=== PATIENT | female | born 1935 | race Caucasian/White ===

== ENCOUNTER → 2016-08-07 | Outpatient (CLI) | payer OTHER | LOC: FIMAGING 11:45 | PROVIDERS: ATTEND Internal Medicine Critical Care Medicine | DX: J42 Unspecified chronic bronchitis (principal) ==

== ENCOUNTER 2017-03-15 07:54 | Inpatient (IN) | payer OTHER ==
[2017-03-15] MEDS ORDERED: ASPIRIN 81 MG CHEWABLE TAB PO ONE (08:11)
[2017-03-15] MEDS ORDERED: NS 500 ML IV ONE (08:11)
--- NOTE | 2017-03-15 08:15 | EDPHY ---
H & P Stated Complaint: Chest pain, Lt arm pain since 2100 last PM Time Seen by Provider: 03/15/17 08:05 HPI/ROS: CHIEF COMPLAINT: Left arm pain HISTORY OF PRESENT ILLNESS: Patient is an 81-year-old female with a history of 4 cardiac stents placed [address] Acuña. She states that last night around 9:00 p.m. she developed left arm pain from her shoulder to her hand. No shortness of breath. No chest pain. No diaphoresis. Mild nausea but no vomiting. No headache or neck pain. REVIEW OF SYSTEMS: Constitutional: denies: chills, fever, recent illness, recent injury EENTM: denies: blurred vision, double vision, nose congestion Respiratory: denies: cough, shortness of breath Cardiac: See HPI denies: chest pain, irregular heart rate, lightheadedness, palpitations Gastrointestinal/Abdominal: denies: abdominal pain, diarrhea, nausea, vomiting, blood streaked stools Genitourinary: denies: dysuria, frequency, hematuria, pain Musculoskeletal: denies: joint pain, muscle pain Skin: denies: lesions, rash, jaundice, bruising Neurological: denies: headache, numbness, paresthesia, tingling, dizziness, weakness Hematologic/Lymphatic: denies: blood clots, easy bleeding, easy bruising Immunologic/allergic: denies: HIV/AIDS, transplant EXAM: GENERAL: Well-appearing, well-nourished and in no acute distress. HEAD: Atraumatic, normocephalic. EYES: Pupils equal round and reactive to light, extraocular movements intact, sclera anicteric, conjunctiva are normal. ENT: TMs normal, nares patent, oropharynx clear without exudates. Moist mucous membranes. NECK: Normal range of motion, supple without lymphadenopathy or JVD. LUNGS: Breath sounds clear to auscultation bilaterally and equal. No wheezes rales or rhonchi. HEART: Regular rate and rhythm without murmurs, rubs or gallops. ABDOMEN: Soft, nontender, normoactive bowel sounds. No guarding, no rebound. No masses appreciated. BACK: No CVA tenderness, no spinal tenderness, step-offs or deformities EXTREMITIES: Normal range of motion, no pitting or edema. No clubbing or cyanosis. NEUROLOGICAL: Cranial nerves II through XII grossly intact. Normal speech, normal gait. 5/5 strength, normal movement in all extremities, normal sensation PSYCH: Normal mood, normal affect. SKIN: Warm, dry, normal turgor, no visible rashes or lesions. Source: Patient Exam Limitations: No limitations - Personal History Current Tetanus/Diphtheria Vaccine: Unsure Current Tetanus Diphtheria and Acellular Pertussis (TDAP): Unsure Tetanus Vaccine Date: unsure - Medical/Surgical History Hx Asthma: No Hx Chronic Respiratory Disease: No Hx Diabetes: No Hx Cardiac Disease: Yes Hx Renal Disease: No Hx Cirrhosis: No Hx Alcoholism: No Hx HIV/AIDS: No Hx Splenectomy or Spleen Trauma: No Other PMH: pneumonia, heart stents, hysterectomy - Family History Significant Family History: No pertinent family hx - Social History Smoking Status: Former smoker Alcohol Use: Sober Drug Use: None Constitutional: Initial Vital Signs Temperature (C) 37 C 03/15/17 07:55 Heart Rate 74 03/15/17 07:55 Respiratory Rate 16 03/15/17 07:55 Blood Pressure 130/72 H 03/15/17 07:55 O2 Sat (%) 94 03/15/17 07:55 O2 Delivery Mode Room Air Allergies/Adverse Reactions: Latex, Natural Rubber Allergy (Verified 07/13/15 14:38) purple dye Allergy (Uncoded 07/13/15 14:38) Home Medications: Medication Instructions Recorded Levothyroxine [Synthroid 50 mcg 50 mcg PO DAILY06 02/02/09 (*)] Albuterol [Proventil] 2 puffs IH Q4 PRN 07/13/15 Fluticasone Nasal [Flonase Nasal 1 sprays NASAL DAILY PRN 07/13/15 [place]] Aspirin [Aspirin 325 mg (*)] 325 mg PO DAILY PRN 03/15/17 Multivitamins [Multivitamin (*)] 1 each PO DAILY@18 03/15/17 Simvastatin [Zocor] 20 mg PO HS 03/15/17 Medical Decision Making - Diagnostics EKG Interpretation: An EKG obtained and was read and documented in trace view. Please see trace view for full reading and report. Sinus rhythm, no acute ischemic changes Imaging Results: Imaging Impressions Chest X-Ray 03/15/17 08:11 Impression: Negative portable chest. ED Course/Re-evaluation: 9:30 a.m. we discussed the patient's lab and imaging results which are reassuring. Her D-dimer is negative age adjusted. She has had significant improvement in her pain was still is having left hand and triceps region pain/ numbness. No weakness. I recommended admission for further workup. She and her agree and are concerned about the insurance status if she is observation. Primary is Dr. Boston. 9:33 a.m. I discussed the case with Dr. Garza who will accept to the medical service for Dr. Alvares. Differential Diagnosis: Partial list of the Differential diagnosis considered include but were not limited to; acute coronary disease, pleurisy, PE, muscle strain and although unlikely based on the history and physical exam, I also considered TIA, CVA, vascular disease. - Data Points Laboratory Results: Laboratory Results 03/15/17 08:18 03/15/17 08:18 03/15/17 03/15/17 03/15/17 08:18 08:18 08:18 WBC 8.65 10^3/uL 10^3/uL (3.80-9.50) RBC 4.54 10^6/uL 10^6/uL (4.18-5.33) Hgb 12.7 g/dL g/dL (12.6-16.3) Hct 38.0 % % (38.0-47.0) MCV 83.7 fL fL (81.5-99.8) MCH 28.0 pg pg (27.9-34.1) MCHC 33.4 g/dL g/dL (32.4-36.7) RDW 14.1 % % (11.5-15.2) Plt Count 276 10^3/uL 10^3/uL (150-400) MPV 9.8 fL fL (8.7-11.7) Neut % (Auto) 56.8 % % (39.3-74.2) Lymph % (Auto) 31.4 % % (15.0-45.0) Cross % (Auto) 8.7 % % (4.5-13.0) Eos % (Auto) 2.0 % % (0.6-7.6) Baso % (Auto) 0.9 % % (0.3-1.7) Nucleat RBC Rel Count 0.0 % % (0.0-0.2) Absolute Neuts (auto) 4.91 10^3/uL 10^3/uL (1.70-6.50) Absolute Lymphs (auto) 2.72 10^3/uL 10^3/uL (1.00-3.00) Absolute Monos (auto) 0.75 10^3/uL 10^3/uL (0.30-0.80) Absolute Eos (auto) 0.17 10^3/uL 10^3/uL (0.03-0.40) Absolute Basos (auto) 0.08 10^3/uL 10^3/uL (0.02-0.10) Absolute Nucleated RBC 0.00 10^3/uL 10^3/uL (0-0.01) Immature Gran % 0.2 % % (0.0-1.1) Immature Gran # 0.02 10^3/uL 10^3/uL (0.00-0.10) PT 14.2 SEC SEC (12.0-15.0) INR 1.11 (0.83-1.16) APTT 32.6 SEC SEC (23.0-38.0) D-Dimer 0.58 ug/mLFEU H ug/mLFEU (0.00-0.50) Sodium 147 mEq/L H mEq/L (134-144) Potassium 4.0 mEq/L mEq/L (3.5-5.2) Chloride 105 mEq/L mEq/L (97-110) Carbon Dioxide 29 mEq/l mEq/l (22-31) Anion Gap 13 mEq/L mEq/L (8-16) BUN 18 mg/dL mg/dL (7-23) Creatinine 1.0 mg/dL mg/dL (0.6-1.0) Estimated GFR 53 Glucose 92 mg/dL mg/dL (70-100) Calcium 9.7 mg/dL mg/dL (8.5-10.4) Troponin I < 0.012 ng/mL ng/mL (0.000-0.034) Medications Given: Discontinued Medications Aspirin (Aspirin) 324 mg PO EDNOW ONE Stop: 03/15/17 08:12 Last Admin: 03/15/17 09:04 Dose: 324 mg Sodium Chloride (Ns) 500 mls @ 0 mls/hr IV EDNOW ONE; Wide Open PRN Reason: Protocol Stop: 03/15/17 08:12 Last Admin: 03/15/17 09:03 Dose: 500 mls Morphine Sulfate (Morphine) 2 mg IVP EDNOW ONE Stop: 03/15/17 08:12 Last Admin: 03/15/17 09:05 Dose: 2 mg Departure - Departure Disposition: [facility] Inpatient Acute Clinical Impression: Chest pain Qualifiers: Chest pain type: unspecified Qualified Code(s): R07.9 - Chest pain, unspecified Condition: Fair
[2017-03-15 08:27] LABS: % IMMATURE GRANULYOCYTES 0.2 % (0.0-1.1); ABSOLUTE IMMATURE GRANULOCYTES 0.02 10^3/uL (0.00-0.10); ADD DIFF? NO; ADD MORPH? NO; ADD SCAN? NO; ATYPICAL LYMPHOCYTE FLAG 0 (0-99); FRAGMENT RBC FLAG 0 (0-99); HEMOGLOBIN 12.7 g/dL (12.6-16.3); LEFT SHIFT FLG 0 (0-99); LIPEMIA HEMOLYSIS FLAG 80 (0-99); MEAN CELL HEMOGLOBIN CONCENTR. 33.4 g/dL (32.4-36.7); MEAN CELL VOLUME 83.7 fL (81.5-99.8); MEAN PLATELET VOLUME 9.8 fL (8.7-11.7); PLATELET CLUMPS FLAG 0 (0-99); PLATELET COUNT 276 10^3/uL (150-400); RED BLOOD CELL COUNT 4.54 10^6/uL (4.18-5.33); RED CELL DISTRIBUTION WIDTH 14.1 % (11.5-15.2)
--- NOTE | 2017-03-15 08:28 | CPEKG ---
Heart Rate: 67 RR Interval: 896 P-R Interval: 160 QRSD Interval: 78 QT Interval: 444 QTC Interval: 469 P [place]: 75 QRS [place]: 21 T Wave [place]: 49 EKG Severity - BORDERLINE ECG - EKG Impression: SINUS RHYTHM EKG Impression: BORDERLINE R WAVE PROGRESSION, ANTERIOR LEADS Electronically Signed By: Víctor Powers 15-Mar-2017 08:29:03
[2017-03-15 08:37] LABS: INR 1.11 (0.83-1.16); PROTIME(PATIENT) 14.2 SEC (12.0-15.0)
[2017-03-15 08:38] LABS: ANION GAP 13 mEq/L (8-16); APTT 32.6 SEC (23.0-38.0); CALCIUM 9.7 mg/dL (8.5-10.4); CARBON DIOXIDE 29 mEq/l (22-31); CHLORIDE 105 mEq/L (97-110); GLOMERULAR FILTRATION RATE 53; GLUCOSE 92 mg/dL (70-100); SODIUM 147 mEq/L (134-144)
[2017-03-15 08:50] LABS: TROPONIN I < 0.012 ng/mL (0.000-0.034)
[2017-03-15] MEDS ORDERED: ACETAMINOPHEN 325 MG TAB PO PRN (10:43)
[2017-03-15] MEDS ORDERED: ONDANSETRON 4 MG/2 ML VIAL IVP PRN (10:43)
--- NOTE | 2017-03-15 10:49 | PDGENHP ---
History and Physical History and Physical: CC: Left arm pain HISTORY: This patient who is known to us here from prior admissions, gotten bed around 9 o'clock last evening and shortly thereafter experienced onset abruptly of a fairly severe diffuse left upper extremity pain. It went from her shoulder down to her hand and was circumferential along that length of the limb. She describes it as feeling like she had banged her arm against something though there was no injury. She denies any kind of burning tingling or numb sensation to suggest neuropathic pain. She took some aspirin and after a few hours finally fell asleep and woke up this morning with the pain still present but lesser in severity. She came into the emergency room with the Pain still ongoing this morning and was given some morphine which gave her relief from the pain. She denies pain in the chest back neck abdomen or any other pain in the recent past. There has been no shortness of breath with this episode and no nausea and no palpitations. She states she has never had a pain in her arm like this before. The patient does have a history of coronary disease with stents placed 9 years ago. She has had no cardiac problems since then. At that time she had very specifically a severe angina pain in the substernal area but does not recall having any arm pain with that episode. She continues on cardiac medications. She has not had recently any orthopnea, palpitations, angina-like symptoms, or ankle edema. Notably she does also have some chronic asthma and has a history of 20 pack years of smoking having quit a long time ago. In the fpc she uses intermittent albuterol. She tells me that over the last 2-3 months she has had worsening trouble with her chronic dyspnea along with some nocturnal coughing. She has been using her albuterol inhaler more often than she typically does during this time and says that it still does help her breathing way she expects it to. She is not on either inhaled long-acting bronchodilators or inhaled steroids as best I can tell. She has no fever or sputum production and has not had anything that feels like a cold or flu. ROS: A comprehensive 10 system review revealed no other significant findings PAST MEDICAL HISTORY: Coronary artery disease with 4 stents Osteoarthritis Pneumonia Reactive airway disease, question chronic bronchitis Hypothyroidism Hysterectomy FAMILY MEDICAL HISTORY: Coronary artery disease in multiple family members SOCIAL HISTORY: Quit smoking after 20 pack year history lives with her MEDICATIONS: The patients list has been reconciled by our clinical pharmacist in the EMR. I have reviewed the list and ordered appropriate medicines. PHYSICAL EXAMINATION: Vital Signs: Normal blood pressure pulse respirations and no fever Marriage And Family Counselor: Sinus rhythm in the ER Examination: General: alert, oriented, good mentation, relaxed Skin: warm, dry, good color, no rash HEENT: normal Neck: no mass or jvd Resps: relaxed Lungs: clear breath sounds Heart: regular, no murmur Abdomen: soft, nondistended, nontender, +BS, no mass Upper Extremities: Inspection and palpation of the left upper extremity with skin soft tissues skeletal and vascular exam reveals no abnormalities, otherwise right extremity normal Lower Extremities: no edema, warm No Bleeding or bruising Neurologic: normal speech/language, 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, no focal weakness IV site: looks normal LABORATORY DATA: D-dimer is elevated Troponin is undetectable Sodium a little bit elevated at 147 with normal chloride and bicarbonate Otherwise unremarkable Chem panel and CBC RADIOLOGY STUDIES: Chest x-ray on my personal review of images shows some mild diffuse interstitial abnormalities throughout the lower portions of the lungs, little changed from previous x-rays I reviewed from over the past 2 years 12 LEAD EKG: Sinus rhythm with normal QRS complex, nothing that appears as ischemia or injury ASSESSMENT: # left arm pain lasting approximately 12 hours spontaneous onset. The cause of this is uncertain. It does not sound like it is likely to be a cardiac pain in that it is in a completely different location than her previous angina and it lasted 12 hours with normal EKG and normal troponin. I cannot find anything else from history or examination however to explain this pain. It is reasonable to observe her here and overnight and do stress testing in the morning if all stable as she does have a history of coronary disease with stents from 9 years ago. # elevated D-dimer. Unsure why she had this test done as she really does not have any symptoms at all suggestive of PE or DVT. DVT of the arm would not have resolved away her pain has resolved. At this time my suspicion for thrombo embolic disease extremely low and I will not pursue it further unless something changes # uncontrolled reactive airway disease and with her smoking history suspicion for chronic obstructive disease as well. With her history as described above at this time is indicated to add some long-acting inhaled medications, and I will review with Dr. 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 Hi and get her started on some long-acting inhaled medications -continue current cardiac medications I have reviewed the patient's case in detail with Dr. Dwayne Hi and Víctor Powers I have reviewed the patient's past medical records as part of this assessment, including previous hospital admission records
[2017-03-15] MEDS ORDERED: ALBUTEROL IH PRN (10:52)
[2017-03-15] MEDS ORDERED: FLUTICASONE NASAL 120 SPRAYS/16 GM MDI EACHNARE PRN (10:52)
[2017-03-15] MEDS ORDERED: ASPIRIN 325 MG TAB PO PRN (10:52)
[2017-03-15] MEDS ORDERED: ALBUTEROL 200 PUFFS/18 GM MDI IH PRN (11:15)
[2017-03-15] MEDS: MULTIVITAMINS 1 EACH TAB PO SCH (17:34)
[2017-03-15] MEDS: ATORVASTATIN CALCIUM 10 MG TAB PO SCH (19:52)
[2017-03-15] MEDS ORDERED: NON-FORMULARY NEW DRUG (Simvastatin [Zocor] 20 MG) PO SCH (21:00)
[2017-03-15] MEDS: BUDESONIDE 0.5 MG/2 ML AMPUL.NEB IH SCH (22:27)
[2017-03-16 04:54] LABS: ANION GAP 13 mEq/L (8-16); CALCIUM 9.7 mg/dL (8.5-10.4); CARBON DIOXIDE 25 mEq/l (22-31); CHLORIDE 107 mEq/L (97-110); CREATININE 0.9 mg/dL (0.6-1.0); GLOMERULAR FILTRATION RATE 60; GLUCOSE 89 mg/dL (70-100); POTASSIUM 4.1 mEq/L (3.5-5.2); SODIUM 145 mEq/L (134-144)
[2017-03-16] MEDS: LEVOTHYROXINE 50 MCG TAB PO SCH (06:18)
[2017-03-16] MEDS: ENOXAPARIN 40 MG/0.4 ML SYR SC SCH (08:55)
[2017-03-16] MEDS: BUDESONIDE 0.5 MG/2 ML AMPUL.NEB IH SCH ×2 (09:18→21:47)
[2017-03-16] MEDS ORDERED: REGADENOSON 0.4 MG/5 ML SYR IVP ONE (09:30)
--- NOTE | 2017-03-16 11:09 | ASMTCMCOM ---
CM Note CM Note Notes: 03/16/2017 Case Management Note Met w/pt and Nolan [phone] Son Roderick can be reached at [phone]. CISNEROS signed. had questions regarding coverage, provided financial services information. Pt reports using a home care agency in the past but unable to recall name of agency. Case Management unable to find agency in past records. No case management d/c needs identified at this time d/t family support and activity levels prior to admission. There are no PT or OT evals ordered. Case Management d/c poc: Home independent with family support when medically stable with follow up as directed. Case Management available if needs change. Date Signed: 03/16/2017 11:08 AM Electronically Signed By:Lis Barrett RN
--- NOTE | 2017-03-16 12:17 | CPIP ---
[f rep st] INVASIVE CARDIAC PROCEDURE DATE OF PROCEDURE: 03/15/2017 PROCEDURE PERFORMED: Lexiscan stress test report. INDICATIONS: Chest pain. COMPLICATIONS: None. DESCRIPTION OF PROCEDURE: Informed consent was obtained. The patient was established to the monitor . Continuous telemetry, blood pressures every minute and continuous oxygen saturation monitoring was performed. The patient received 0.4 mg Lexiscan infusion per standard protocol followed by radio ph armaceutical. FINDINGS: Resting EKG: Normal sinus rhythm. Stress EKG: No change in rhythm and no ischemic ST changes. HEMODYNAMICS: Resting heart rate 78 beats per minute. Resting blood pressure 144/78. At peak pharm acological affect blood pressure was 112/70 with a heart rate of 96. Oxygen saturation remained abov e 90% throughout testing. SYMPTOMS: The patient experienced some shortness of breath and flushing that resolved with caffeine ingestion. CONCLUSIONS: Uneventful Lexiscan infusion. Await nuclear images. /[id number]/MODL
--- NOTE | 2017-03-16 16:08 | HOSPPROG ---
Hospitalist Progress Note Assessment/Plan: Perfusion scan with lexiscan with some perfusion abnormality, so will need to keep her here overnight. Will need to change to inpatient DIAGNOSES: -L arm pain, c/w angina -hx of CAD / stents -ongoing persistent moderate asthma symptoms, improved with addition of inhaled steroid here at this time PLANS: Will continue monitoring here overnight Resting myocardial perfusion scan tomorrow Continue inhaled steroid along with her bronchodilator Recommend follow-up with Dr. Hi in clinic in the near future to review her asthma care SUBJECTIVE: Her left arm pain is completely resolved No chest pain or shortness of breath She has improvement in her breathing symptoms since addition of the inhaled steroid yesterday OBJECTIVE Vitals reviewed: some mild HTN, otherwise stable Medicare Nurse, my review: sinus Exam: alert oriented skin warm dry color ok resps not labored lungs clear BSs heart regular abd soft nondistended nontender, bowel sounds present limbs warm, no edema iv site ok Perfusion Scan: There is some decreased uptake in the septum and apex on Lexiscan myocardial perfusion imaging today Objective: Vital Signs Temp Pulse Resp BP Pulse Ox 36.7 C 79 26 H 150/99 H 94 03/16/17 15:54 03/16/17 15:54 03/16/17 15:54 03/16/17 15:54 03/16/17 15:54 Laboratory Results 03/16/17 04:12 03/15/17 03/16/17 03/17/17 06:59 06:59 06:59 Intake Total 700 Balance 700 PT 14.2 SEC (12.0-15.0) 03/15/17 08:18 INR 1.11 (0.83-1.16) 03/15/17 08:18 ICD10 Worksheet Patient Problems: Problems Problem Status Onset Chest pain Acute Fever Acute Hypoxia Acute
--- NOTE | 2017-03-16 17:20 | PDMN ---
Medical Necessity Medical necessity: C/M review: est. > 2 MN LOS for eval and TX of acute left arm pain consistent with angina, 03/16/2017 perfusion scan with lexiscan with some perfusion abnormality requiring planned 03/17/2017 myocardial perfusion scan rest images, ongoing cardiac monitoring, comorbid mild hypertension, hx CAD / stents per 03/16/2017 Hospitalist progress note.
[2017-03-16] MEDS: MULTIVITAMINS 1 EACH TAB PO SCH (18:49)
[2017-03-16] MEDS: ATORVASTATIN CALCIUM 10 MG TAB PO SCH (19:45)
[2017-03-17] MEDS: LEVOTHYROXINE 50 MCG TAB PO SCH (07:20)
[2017-03-17 07:31] VITALS: RESP 18; TEMP 97.4
[2017-03-17] MEDS: BUDESONIDE 0.5 MG/2 ML AMPUL.NEB IH SCH (08:11)
--- NOTE | 2017-03-17 09:08 | HOSPPROG ---
Hospitalist Progress Note Assessment/Plan: #acute left arm pain: initial concern for anginal equivalent for CAD -Lexiscan negative Negative trop/EKG #CAD: stenting 9 years ago #Suspected COPD: add Qvar, FU with Dr. Hi DC today Subjective: no arm pain or SOB. Objective: Vital Signs Temp Pulse Resp BP Pulse Ox 36.3 C 70 18 130/67 H 94 03/17/17 07:30 03/17/17 07:30 03/17/17 07:30 03/17/17 07:30 03/17/17 08:13 03/16/17 03/17/17 03/18/17 05:59 05:59 05:59 Intake Total 750 Balance 750 PT 14.2 SEC (12.0-15.0) 03/15/17 08:18 INR 1.11 (0.83-1.16) 03/15/17 08:18 - Physical Exam Constitutional: no apparent distress Eyes: PERRL Ears, Nose, Mouth, Throat: moist mucous membranes Cardiovascular: regular rate and rhythym, No edema Respiratory: no respiratory distress Gastrointestinal: normoactive bowel sounds Genitourinary: no bladder fullness Skin: warm Musculoskeletal: full muscle strength Neurologic: AAOx3 Psychiatric: interacting appropriately Lymph, Heme, Immunologic: no cervical LAD ICD10 Worksheet Patient Problems: Problems Problem Status Onset Chest pain Acute Fever Acute Hypoxia Acute
[2017-03-17] MEDS: ENOXAPARIN 40 MG/0.4 ML SYR SC SCH (10:03)
[2017-03-17 11:23] VITALS: BP 118/64; PULSE 78; O2SAT 91
--- NOTE | 2017-03-18 13:11 | GDS ---
[f rep st] DISCHARGE SUMMARY DISCHARGE DIAGNOSES: 1. Left arm pain, initial concern for anginal equivalent. 2. History of coronary artery disease with 4 stents. 3. Osteoarthritis. 4. Pneumonia. 5. Reactive airway disease. 6. Hypothyroidism. REASON FOR ADMISSION: An 81-year-old female with history of coronary disease with 4 stents, osteoarthritis, reactive airways disease, presented after having severe left upper arm pain. It went from her shoulder to her hand, and felt as though she banged it against something. She denies any injury or trauma. She denies any burning, numbness. She took 3 aspirins and fell asleep, but awoke again with the pain still present, but less severe. She came in the ER with the pain and was given some relief with morphine. She denies overt chest pain, neck pain or back pain. No shortness of breath. No nausea, vomiting, diaphoresis. HOSPITAL COURSE BY PROBLEM: 1. Left arm pain: Concern for angina equivalent given history of coronary artery disease. Underwent Lexiscan that was negative for ischemia. She has resumed aspirin and statin. 2. Reactive airways disease: Likely has COPD. She follows with Dr. Hi. Will add Qvar, cont albuterol. 3. Hypothyroidism. Continue Synthroid. DISCHARGE DISPOSITION: Patient is stable for discharge. NEW MEDICATIONS: Qvar FOLLOWUP: 1. Her primary care physician. 2. Dr. Hi. She was given return precautions for chest pain, shortness of breath, nausea, vomiting. /[id number]/MODL MTDD
--- NOTE | 2017-03-19 15:48 | ASDISCHSUM ---
Discharge Information Plan Status:Home with No Needs Medically Cleared to Leave: Discharge Date:03/17/2017 04:45 PM CM D/C Disposition:Home, Routine, Self-Care ADT D/C Disposition:Home, Routine, Self-Care Projected Discharge Date:03/17/2017 04:45 PM Transportation at D/C:Family Discharge Delay Reason: Follow-Up Date:03/17/2017 04:45 PM Discharge Slot: Final Diagnosis: Placement Information Patient Contact Information Contact Name:CLAUDIA Relationship: Address:[address] [place]:[facility] Phone: [facility]/Zip Code:[place] [address] Email: Financial Information Financial Class: Primary Plan Desc:MEDICARE INPATIENT Primary Plan Number:[id number] Secondary Plan Desc:[facility] Secondary Plan Number:[id number] Assessment Information LACE LACE Acuity / Level of Care Answers: Was the patient admitted to hospital via the emergency department? Yes: Comorbidities - select Answers: Previous myocardial all that apply infarction Emergency dept visits in Answers: 1 last 6 months Score: 5 Date Signed: 03/15/2017 11:13 AM Electronically Signed By:Asiya Coleman RN [facility] Progress Note CM Note CM Note Notes: 03/16/2017 Case Management Note Met w/pt and Nolan [phone] Tito Vaughn can be reached at [phone]. BLAYNE signed. had questions regarding coverage, provided financial services information. Pt reports using a home care agency in the past but unable to recall name of agency. Case Management unable to find agency in past records. No case management d/c needs identified at this time d/t family support and activity levels prior to admission. There are no PT or OT evals ordered. Case Management d/c poc: Home independent with family support when medically stable with follow up as directed. Case Management available if needs change. Date Signed: 03/16/2017 11:08 AM Electronically Signed By:Lis Barrett RN Intervention Information Intervention Type:*CISNEROS-Signed Date of Service:03/16/2017 11:08 AM Patient Type:Observation Staff Member:VIMAL Barrett Hillary Hours:0.5 Discipline: Severity: Comment: Intervention Type:*Occurence 72 Date of Service:03/15/2017 09:10 AM Patient Type:Inpatient Staff Member:VIMAL Ludwig Courtney Hours: Discipline: Severity: Comment:
== END 2017-03-17 16:45 | disposition home or self-care (01) | DRG 311 ==
LOC: F2W 11:10 → OBSVTOIN 03-16 16:03
PROVIDERS: ADMIT Internal Medicine; ATTEND Internal Medicine
DX: I20.9 Angina pectoris, unspecified (principal); M19.90 Unspecified osteoarthritis, unspecified site; J45.909 Unspecified asthma, uncomplicated; E03.9 Hypothyroidism, unspecified; Z95.5 Presence of coronary angioplasty implant and graft; J44.9 Chronic obstructive pulmonary disease, unspecified; Z87.891 Personal history of nicotine dependence
CPT/HCPCS: 96374; A9500; G0378; J1650; J2785; J7626

== ENCOUNTER 2017-05-08 09:58 | Emergency (ER) | payer OTHER ==
[2017-05-08 10:07] VITALS: RESP 18; TEMP 97.5
--- NOTE | 2017-05-08 10:28 | CPEKG ---
Heart Rate: 85 RR Interval: 706 P-R Interval: 172 QRSD Interval: 78 QT Interval: 388 QTC Interval: 462 P [place]: 84 QRS [place]: 33 T Wave [place]: 48 EKG Severity - ABNORMAL ECG - EKG Impression: artifact present EKG Impression: SINUS RHYTHM Electronically Signed By: Natasha Crane 08-May-2017 15:22:35
--- NOTE | 2017-05-08 10:34 | EDPHY ---
H & P Time Seen by Provider: 05/08/17 10:23 HPI/ROS: CHIEF COMPLAINT: Fall, facial injury HISTORY OF PRESENT ILLNESS: 82-year-old female presents to the emergency department by private vehicle after she sustained a fall just prior to arrival. Her states that he dropped her off for an appointment with her proposal writer and he was going to park the car and the next thing he knew 0 she was on the ground. It is not clear where dinner she felt dizzy or had a syncopal episode. She does not remember feeling dizzy or having pain in her chest but she does not remember why she fell. She does not remember tripping or losing her balance. She feels a bit dizzy now. She has pain in her facial bones specifically her nose. Denies neck or back pain. Denies chest pain or difficulty breathing. No abdominal pain. No injury to her upper or lower extremities. REVIEW OF SYSTEMS: Constitutional: No fever, no chills. Eyes: No double or blurry vision. ENT: No sore throat. Respiratory: No cough, no shortness of breath. Cardiac: No chest pain. Gastrointestinal: No abdominal pain, vomiting or diarrhea. Genitourinary: No dysuria. Musculoskeletal: No neck or back pain. Skin: Facial abrasions. No rashes. Neurological: No headache. Past Medical/Surgical History: Pneumonia, cardiac stents, hysterectomy Social History: Smoking Status: Former smoker Physical Exam: General Appearance: Alert, no distress. Mentating normally and answering questions appropriately. Eyes: Pupils equal and round. Extraocular motions are all intact. ENT: Mouth: Mucous membranes moist. No dental injury or malocclusion. Respiratory: No wheezing, rhonchi, or rales, lungs are clear to auscultation. Cardiovascular: Regular rate and rhythm. Gastrointestinal: Abdomen is soft and nontender, no masses, no rebound or guarding, bowel sounds normal. Neurological: Alert and oriented x 3, cranial nerves II through XII grossly intact Skin: Superficial abrasions noted to the anterior aspect of her nose. Warm and dry, no rashes. Musculoskeletal: Nontender to palpate along the cervical, thoracic or lumbar spine. Neck is supple. Extremities: Full range of motion and no peripheral edema. Psychiatric: Patient is oriented X 3, there is no agitation. Constitutional: Initial Vital Signs Temperature (C) 36.4 C 05/08/17 10:03 Heart Rate 95 05/08/17 10:03 Respiratory Rate 18 05/08/17 10:03 Blood Pressure 162/92 H 05/08/17 10:03 O2 Sat (%) 95 05/08/17 10:03 O2 Delivery Mode Room Air Allergies/Adverse Reactions: Latex, Natural Rubber Allergy (Verified 05/08/17 09:59) purple dye Allergy (Uncoded 07/13/15 14:38) Home Medications: Medication Instructions Recorded Levothyroxine [Synthroid 50 mcg 50 mcg PO DAILY06 02/02/09 (*)] Albuterol [Proventil] 2 puffs IH Q4 PRN 07/13/15 Fluticasone Nasal [Flonase Nasal 1 sprays NASAL DAILY PRN 07/13/15 [place]] Aspirin [Aspirin 325 mg (*)] 325 mg PO DAILY PRN 03/15/17 Multivitamins [Multivitamin (*)] 1 each PO DAILY@18 03/15/17 Simvastatin [Zocor] 20 mg PO HS 03/15/17 Beclomethasone Qvar 80 [Qvar 80 1 puffs IH BID #1 mdi 03/17/17 (*)] Qvar 05/08/17 Medical Decision Making - Diagnostics Imaging Results: Imaging Impressions Cervical Spine CT 05/08/17 10:31 Impression: 1. No acute fracture or soft tissue swelling. 2. 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 3. If the patient has persistent pain or neurologic deficits, consider cervical spine MRI. Findings discussed with Emergency Department, Sabina Shahid, on 05/08/2017 at 11: [address] 05/08/17 10:31 Impression: Negative. No acute fracture or intracranial hemorrhage. Findings discussed with Emergency Department, Sabina Shahid, on 05/08/2017 at 11: 23 a.m. Imaging: Discussed imaging studies w/ drapery seamstress Radiologist ED Course/Re-evaluation: 82-year-old female presents after a fall. CT imaging of the head and cervical spine were negative. Laboratory studies were unremarkable. EKG was within normal limits. The patient does not have a pacemaker. Patient was able to ambulate throughout the department and had no complaints. The case was discussed with Dr. Natasha Crane, secondary supervising physician, who did not directly evaluate the patient but agrees with treatment and plan. It is not clear whether this patient has syncopal episode where she had a mechanical fall. She has been feeling dizzy and that is why she was going to see her proposal writer about her chronic nausea. I offered admission to the hospital, however the patient declined. She will have close follow-up with her primary care provider. She was encouraged to return to the emergency department if any other concerns. Differential Diagnosis: Head injury including but not limited to concussion, skull fracture, intraparenchymal contusion, subarachnoid, subdural and epidural hematoma. Syncope including but not limited to vasovagal syncope, arrhythmia, dehydration , and blood loss. - Data Points Laboratory Results: Laboratory Results 05/08/17 10:30 05/08/17 10:30 05/08/17 05/08/17 10:30 10:30 WBC 9.25 10^3/uL 10^3/uL (3.80-9.50) RBC 4.80 10^6/uL 10^6/uL (4.18-5.33) Hgb 13.2 g/dL g/dL (12.6-16.3) Hct 40.6 % % (38.0-47.0) MCV 84.6 fL fL (81.5-99.8) MCH 27.5 pg L pg (27.9-34.1) MCHC 32.5 g/dL g/dL (32.4-36.7) RDW 13.7 % % (11.5-15.2) Plt Count 339 10^3/uL 10^3/uL (150-400) MPV 9.7 fL fL (8.7-11.7) Neut % (Auto) 54.4 % % (39.3-74.2) Lymph % (Auto) 34.8 % % (15.0-45.0) [place] % (Auto) 7.6 % % (4.5-13.0) Eos % (Auto) 1.7 % % (0.6-7.6) Baso % (Auto) 1.2 % % (0.3-1.7) Nucleat RBC Rel Count 0.0 % % (0.0-0.2) Absolute Neuts (auto) 5.03 10^3/uL 10^3/uL (1.70-6.50) Absolute Lymphs (auto) 3.22 10^3/uL H 10^3/uL (1.00-3.00) Absolute Monos (auto) 0.70 10^3/uL 10^3/uL (0.30-0.80) Absolute Eos (auto) 0.16 10^3/uL 10^3/uL (0.03-0.40) Absolute Basos (auto) 0.11 10^3/uL H 10^3/uL (0.02-0.10) Absolute Nucleated RBC 0.00 10^3/uL 10^3/uL (0-0.01) Immature Gran % 0.3 % % (0.0-1.1) Immature Gran # 0.03 10^3/uL 10^3/uL (0.00-0.10) Sodium 149 mEq/L H mEq/L (134-144) Potassium 4.0 mEq/L mEq/L (3.5-5.2) Chloride 105 mEq/L mEq/L (97-110) Carbon Dioxide 26 mEq/l mEq/l (22-31) Anion Gap 18 mEq/L H mEq/L (8-16) BUN 21 mg/dL mg/dL (7-23) Creatinine 0.9 mg/dL mg/dL (0.6-1.0) Estimated GFR 60 Glucose 83 mg/dL mg/dL (70-100) Calcium 10.2 mg/dL mg/dL (8.5-10.4) Troponin I < 0.012 ng/mL ng/mL (0.000-0.034) Medications Given: Discontinued Medications Sodium Chloride (Ns) 1,000 mls @ 0 mls/hr IV ONCE ONE PRN Reason: Wide Open Stop: 05/08/17 10:37 Last Admin: 05/08/17 10:41 Dose: 1,000 mls Departure - Departure Disposition: Home, Routine, Self-Care Clinical Impression: Facial contusion Qualifiers: Encounter type: initial encounter Qualified Code(s): S00.83XA - Contusion of other part of head, initial encounter Facial abrasion Qualifiers: Encounter type: initial encounter Qualified Code(s): S00.81XA - Abrasion of other part of head, initial encounter Fall Qualifiers: Encounter type: initial encounter Qualified Code(s): W19.XXXA - Unspecified fall, initial encounter Condition: Good Instructions: Fall Prevention for Older Adults (ED), Contusion in Adults (ED), Abrasion (ED), Acute Wounds (ED) Additional Instructions: Diet and activity as tolerated. Return to the emergency department if you developed chest pain, difficulty breathing, if you have any recurring fall or any other concerns. Referrals: Umm Boston MD [Primary Care Provider] - 1-2 days without fail
[2017-05-08] MEDS ORDERED: NS 1,000 ML IV ONE (10:36)
[2017-05-08 10:44] LABS: PLATELET COUNT 339 10^3/uL (150-400)
[2017-05-08 12:32] VITALS: BP 152/76; PULSE 76; O2SAT 93
== END 2017-05-08 12:31 | disposition home or self-care (01) ==
DX: S00.83XA Contusion of other part of head, initial encounter (principal); S00.81XA Abrasion of other part of head, initial encounter; Z95.5 Presence of coronary angioplasty implant and graft; Z87.891 Personal history of nicotine dependence; Z91.040 Latex allergy status; W18.39XA Other fall on same level, initial encounter

== ENCOUNTER → 2018-06-08 | Outpatient (CLI) | payer OTHER | LOC: FIMAGING 13:50 | PROVIDERS: ATTEND Internal Medicine Critical Care Medicine | DX: J98.4 Other disorders of lung (principal) ==